=== PATIENT | male | born 1960 | race Caucasian/White ===

== ENCOUNTER → 2016-12-18 | Outpatient (CLI) | payer MEDICARE, BC ==
[~2016-12-18] MED LIST: BACL10TA PO; CLON1TAB36 PO; CLON1TAB69 PO; DCS100C PO; DICL75TA2 PO; GADOBUTROL 10 MMOL/10 ML (GADAVIST) VIAL IV ONE; GBPN600T PO; HYDR-3720 PO; LOVA40TA2 PO; MULT-974 PO; NIAC1CAP PO; OMEG1CAP51 PO; RANI300T4 PO; RNT150T PO; VENL150C PO; [UNRECOGNIZED DRUG - OTHER]
[2016-12-18 17:54] LABS: BLOOD UREA NITROGEN 11 MG/DL (7-18); BUN/CREATININE RATIO 13; CREATININE SERUM 0.85 MG/DL (0.60-1.30); GFR ESTIMATED > 60
--- NOTE | 2016-12-18 19:56 | Diagnostic Imaging Report ---
CLINICAL INDICATION: Patient has chronic low back pain with history of two low back surgeries in 2006 and 2007. EXAM: MRI of the lumbar spine performed without and with 9 cc of Gadavist IV contrast. Sagittal T2, sagittal T1, sagittal T1 fat-sat, sagittal stir, axial T1, axial T2, axial T1 post IV contrast, sagittal T1 post IV contrast, and sagittal T1 fat-sat post IV contrast. COMPARISON: X-ray of the lumbar spine dated 04/07/2013. FINDINGS: There is an incompletely imaged right renal cyst. There is limited visualization of the central canal region on the sagittal sequences due to hardware on the fat-sat sequences. Again seen extensive postop changes to the lumbar spine with L2 through L5 posterior lumbar fusion with bilateral spanning rods and pedicle screws. There are also anterior screws at the L3 and L5 levels. Intervertebral disc spacers are seen at the L3-L4 and L4-L5 levels. There are L3, L4, and L5 laminectomy changes. There is no significant abnormal IV contrast enhancement seen on this exam. There appears to be bony fusion of the L3-L4 and L4-L5 intervertebral levels. There is also fusion of the posterior elements from L2 through L5. There is a fluid collection in the posterior laminectomy bed between the L3 and upper L5 levels. This fluid collection measures roughly 2.0 cm x 3.6 cm x 5.6 cm (AP x Trans x CC). There are Modic type I degenerative signal changes involving the thoracolumbar spine. There are hypertrophic disc spurs involving the thoracolumbar spine region. The distal thoracic spinal cord, conus medullaris, and cauda equina nerve roots are unremarkable. The conus medullaris tip is seen at the upper L2 vertebral body level. Besides postop changes, there is no other significant paraspinal soft tissue abnormality. T10-T11: There is a diffuse disc bulge with bilateral facet arthropathy. There is moderate central canal narrowing and kulhhazj-yf-tsrgga bilateral neuroforamen narrowing. T11-T12: There is diffuse disc bulge, endplate irregularity, and bilateral facet arthropathy. There is moderate central canal narrowing. There is severe bilateral neuroforamen narrowing. T12-L1: There is diffuse disc bulge, mild loss of intervertebral disc height, endplate irregularity, ligamentum flavum buckling, and moderate bilateral facet arthropathy. There is gaiygjjj-fa-bxdnip central canal narrowing and severe bilateral neuroforamen narrowing. L1-L2: There is mild diffuse disc bulge and ynao-pn-xoabnsnr bilateral facet arthropathy. There is mild ligamentum flavum buckling. There is pdpc-lj-zzfulgjq central canal narrowing and severe bilateral neuroforamen narrowing. L2-L3: There is no significant disc bulge. There is moderate bilateral facet arthropathy and ligamentum flavum buckling. There is mild central canal narrowing. There is at least mild bilateral neuroforamen narrowing. L3-L4: There is decompression of the thecal sac posteriorly. There is no significant central spinal canal narrowing. There is bony hypertrophy of the posterior elements with mild narrowing in the transverse dimension due to the hypertrophic posterior elements. The neuroforamen are obscured by susceptibility artifact. L4-L5: There is decompression of the thecal sac posteriorly. There are bony hypertrophic changes of the bony fusion of the posterior elements. There is no significant central canal narrowing. There is suspected jqwrzxxq-cr-tgoixa bilateral neuroforamen narrowing. L5-S1: There is grade 1 retrolisthesis of L5 on S1. There is diffuse disc bulge with hypertrophic disc spurs in the far right lateral region. There is bilateral facet arthropathy/hypertrophy. There is mild central canal narrowing and severe bilateral neuroforamen narrowing. IMPRESSION: 1: There is lumbar spine posterior fusion and anterior fusion hardware, as described above. There is no abnormal IV contrast enhancement. There appears to be intervertebral bony fusion/bridging at the L3-L4 and L4-L5 levels and bony fusion of the posterior elements of L2 through L5. 2: There is a small fluid collection in the posterior lower lumbar laminectomy region. This may represent a seroma versus pseudomeningocele. Infected fluid collection is suspected to be less likely. 3: There is severe multilevel thoracolumbar spine degenerative disc disease, described in detail above. Dictated by: Dictated on workstation # [id number]
== END ==
LOC: RAD 17:19
PROVIDERS: ATTEND Nurse Practitioner Family
DX: M48.06 Spinal stenosis, lumbar region (principal); R15.9 Full incontinence of feces; Z98.1 Arthrodesis status
CPT/HCPCS: 36415; 72158; 82565; 84520

== ENCOUNTER 2020-08-25 05:36 | Outpatient (RCR) | payer BC, MEDICARE ==
[~2020-08-25] VITALS: Ht 185 cm; Wt 104.0 kg
[~2020-08-25 05:36] MED LIST changes: +ALPH600C3 PO; +BETH50TA PO; +BREX0.5T PO; +CHOL10007 PO; +CLON1TAB27 PO; +FAMO20TA3 PO; +FINA5TAB6 PO; -GADOBUTROL 10 MMOL/10 ML (GADAVIST) VIAL IV ONE; +INDO50CA82 PO; +OMG1KC PO; +TMSL.4C PO; +VILA40TA PO
== END 2020-08-25 11:09 | disposition home or self-care (01) ==
LOC: PREOP 05:36
PROVIDERS: ATTEND Surgery
DX: Z01.812 Encounter for preprocedural laboratory examination (principal); K21.9 Gastro-esophageal reflux disease without esophagitis; Z20.828 Contact with and (suspected) exposure to other viral communicable diseases; Z80.0 Family history of malignant neoplasm of digestive organs
CPT/HCPCS: 87635

== ENCOUNTER 2020-08-30 11:43 | Day surgery (SDC) | payer BC, MEDICARE ==
[2020-08-30] VITALS (8 sets, daily range): BP systolic 114–134; BP diastolic 74–89
[~2020-08-30] VITALS: Ht 185 cm; Wt 104.0 kg
[2020-08-30] MEDS ORDERED: LACTATED RINGERS 1,000 ML IV STA (11:49)
[2020-08-30] MEDS ORDERED: LACTATED RINGERS 1,000 ML IV ONE (11:52)
[2020-08-30] MEDS ORDERED: HURRICAINE EXT TUBE (BENZOCAINE) XX PRN (12:00)
[2020-08-30] MEDS ORDERED: PROPOFOL INJECTION 50 ML IV ONE ×2 (12:21→12:55)
[2020-08-30] MEDS ORDERED: MIDAZOLAM 2 MG/2 ML (VERSED) VIAL ONE (12:22)
[2020-08-30] MEDS ORDERED: MULT-1136 PO (12:28)
--- NOTE | 2020-08-30 12:38 | Progress Note-Pre Operative ---
Pre-Operative Progress Note H&P Reviewed The H&P was reviewed, patient examined and no changes noted. Date Seen by Provider: Aug 30, 2020 Time Seen by Provider: 12:37 Date H&P Reviewed: Aug 30, 2020 Time H&P Reviewed: 12:37 Pre-Operative Diagnosis: gerd, incontinence of stool, family hx colon cancer LIZA CARVALHO DO Aug 30, 2020 12:38
--- NOTE | 2020-08-30 13:12 | Progress Note-Post Operative ---
Post-Operative Progess Note Surgeon (s)/Gaming Cashier (s) Surgeon LIZA CARVALHO DO Gaming Cashier: NA Pre-Operative Diagnosis gerd, incontinence of stool, family hx colon cancer Post-Operative Diagnosis Left colon mucosal changes, possible reflux esophagitis Procedure & Operative Findings Date of Procedure 08/30/20 Procedure Performed/Findings EGD c biopsy, colonoscopy c cold random left colon biopsies Anesthesia Type per support services rep Estimated Blood Loss Estimated blood loss (mL): none Specimens/Packing Specimens Removed antrum, ge, left colon LIZA Kaminski DO Aug 30, 2020 13:12
--- NOTE | 2020-08-30 13:16 | Discharge Inst-Simple/Standard ---
Discharge Inst-Standard Patient Instructions/Follow Up Plan of Care/Instructions/FU: 2 weeks Noreen Activity as Tolerated: Yes Discharge Diet: Regular Diet (high fiber) LIZA CARVALHO DO Aug 30, 2020 13:16
--- NOTE | 2020-08-30 13:23 | Anesthesia-General Post-Op ---
MAC Patient Condition Mental Status/LOC: Same as Preop Cardiovascular: Satisfactory Nausea/Vomiting: Absent Respiratory: Satisfactory Pain: Controlled Complications: Absent Post Op Complications Complications None Follow Up Care/Instructions Patient Instructions None needed. Anesthesiology Discharge Order Discharge Order Patient is doing well, no complaints, stable vital signs, no apparent adverse anesthesia problems. No complications reported per nursing. CARMEN MUSTAFA CRNA Aug 30, 2020 13:23
--- NOTE | 2020-08-30 13:43 | OPERATIVE REPORT ---
DATE OF SERVICE: 08/30/2020 PREOPERATIVE DIAGNOSES: Gastroesophageal reflux disease, incontinence of stool, family history of colon cancer. POSTOPERATIVE DIAGNOSIS: Left colon mucosal changes, possible reflux esophagitis. PROCEDURE: EGD with biopsies, colonoscopy with random cold left colon biopsies. SURGEON: Liza Sorto DO ANESTHESIA: Per RECOVERY ROOM NURSE. ESTIMATED BLOOD LOSS: None. COMPLICATIONS: None. SPECIMENS: Antrum, GE junction, left colon, random. INDICATIONS: The patient is a 60-year-old male with GERD symptoms and incontinence of stool and family history of colon cancer. He understands risks and benefits of procedure and wished to proceed with procedure. Consent was signed in the chart. DESCRIPTION OF PROCEDURE: The patient was taken to the endoscopy suite, placed in left lateral recumbent position. Timeout was performed. Scope was inserted in mouth, down the esophagus, stomach and into the duodenum without difficulty. There were no polyps, masses or ulcerations within the duodenum. Scope was slowly retracted back into the stomach where it was further insufflated. No polyps, masses or ulcerations. Scope was retroflexed noting a hiatal hernia. No polyps, masses or ulcerations. Scope was returned to its normal position. Biopsy of the antrum was obtained. Scope was then slowly retracted back. Changes of a possible reflux esophagitis present. Biopsy of GE junction was obtained. Scope was then slowly retracted back noting no other pathology. Digital rectal exam was performed. There were no palpable polyps, masses or ulcerations. Scope was inserted in the rectum and advanced all the way to cecum with minimal difficulty. Prep was adequate. Scope was then slowly retracted back. There were no polyps, masses or ulcerations within the cecum, ascending, transverse colon, the left colon and descending and sigmoid colon. Oral mucosal changes throughout the entire left colon, random colon biopsies were performed. No polyps, masses or ulcerations. Once in the rectum, scope was retroflexed still noting some slight mucosal change. No other pathology noted. Scope was returned to its normal position, slowly withdrawn until completely removed. The patient tolerated procedure well without any complications, taken to recovery room in stable condition. RECOMMENDATIONS: The patient will follow up in the office in about 2 to 3 weeks to review pathology and symptoms. Will need repeat colonoscopy in 5 years due to family history of colon cancer. If any issues before that be seen at that time. We will discuss further recommendations pending biopsy results and symptoms. Job ID: [id number] DocumentID: [id number] Dictated Date: 08/30/2020 13:19:48 Scale Attendant Date: 08/30/2020 13:42:21 Dictated By: LIZA SORTO DO
== END 2020-08-30 13:55 | disposition home or self-care (01) ==
LOC: ENDO 11:43
PROVIDERS: ATTEND Surgery
DX: K21.9 Gastro-esophageal reflux disease without esophagitis (principal); K21.00 Gastro-esophageal reflux disease with esophagitis, without bleeding; R15.9 Full incontinence of feces; K63.89 Other specified diseases of intestine; F41.9 Anxiety disorder, unspecified; F32.9 Major depressive disorder, single episode, unspecified; E11.9 Type 2 diabetes mellitus without complications; M19.90 Unspecified osteoarthritis, unspecified site; Z79.899 Other long term (current) drug therapy; Z80.0 Family history of malignant neoplasm of digestive organs; Z80.3 Family history of malignant neoplasm of breast; Z80.8 Family history of malignant neoplasm of other organs or systems
CPT/HCPCS: 88305

== ENCOUNTER 2021-09-05 16:26 | Observation (INO) | payer MEDICARE ==
[~2021-09-05] VITALS: Ht 187 cm; Wt 101.3 kg
[~2021-09-05 16:26] MED LIST changes: -BETH50TA PO; +BETH50TA2 PO; +MULT-1136 PO
--- NOTE | 2021-09-05 17:56 | ED GI ---
General Chief Complaint: Abdominal/GI Problems Stated Complaint: UTI SYMPTOMS Source of Information: Patient Exam Limitations: No Limitations (MAN ROSS APRN) History of Present Illness Date Seen by Provider: Sep 05, 2021 Time Seen by Provider: 17:54 Initial Comments TBI with feeling poorly. He has urinary frequency and burning, fevers for the past 2 to 3 days to a maximum of 103 degrees at home. Was seen at [facility] today and diagnosed with urinary tract infection and referred to the emergency room. Has not yet been given any antibiotics. August 24 had a lumbar spinal surgery at the [facility] and developed anemia requiring blood transfusion. Reportedly had a hemoglobin of 9 at the time of discharge and was found to be down to 6 again today. Timing/Duration: 1-2 Days Severity/Quality: Moderate Radiation: No Radiation Activities at Onset: None Associated Symptoms: Fever/Chills (MAN ROSS APRN) Allergies and Home Medications Allergies Coded Allergies: No Known Drug Allergies (Verified , 08/30/20) Patient Home Medication List Home Medication List Reviewed: Yes (MAN ROSS APRN) Acetaminophen (Tylenol Extra Strength) 500 Mg Tablet, 1,000 MG PO Q6H PRN for PAIN-MILD (1-4), (Reported) Entered as Reported by: GRACY ARMENTA on 09/06/211114 Last Action: Reviewed Alpha Lipoic Acid (Alpha Lipoic Acid) 600 Mg Capsule, 600 MG PO DAILY, (Reported) Entered as Reported by: GRACY ARMENTA on 09/06/211114 Last Action: Reviewed Baclofen (Baclofen) 10 Mg Tablet, 10 MG PO BID, (Reported) Entered as Reported by: GRACY ARMENTA on 09/06/211114 Last Action: Reviewed Brexpiprazole (Rexulti) 0.5 Mg Tablet, 0.5 MG PO DAILY, (Reported) Entered as Reported by: HUNG WOODS on 08/24/20 1026 Last Action: Converted Cholecalciferol (Vitamin D3) (Vitamin D3) 25 Mcg Capsule, 50 MCG PO DAILY, (Re ported) Entered as Reported by: GRACY ARMENTA on 09/06/211114 Last Action: Reviewed Clonazepam (Clonazepam) 2 Mg Tablet, 2 MG PO HS, (Reported) Entered as Reported by: GRACY ARMENTA on 09/06/211114 Last Action: Converted Docusate Sodium (Docusate Sodium) 100 Mg Capsule, 100 MG PO BID, (Reported) Entered as Reported by: GRACY ARMENTA on 09/06/211114 Last Action: Reviewed Gabapentin (Gabapentin) 600 Mg Tablet, 1,200 MG PO BID, (Reported) Entered as Reported by: HUNG WOODS on 08/24/20 1026 Last Action: Continued Indomethacin (Indomethacin) 50 Mg Capsule, 50 MG PO HS, (Reported) Entered as Reported by: HUNG WOODS on 08/24/20 1026 Last Action: Reviewed Methocarbamol (Methocarbamol) 750 Mg Tablet, 750 MG PO Q8H PRN for SPASMS, (Reported) Entered as Reported by: GRACY ARMENTA on 09/06/211114 Last Action: Reviewed Multivitamin (Multivitamin) 1 Each Tablet, 1 EACH PO DAILY, (Reported) Entered as Reported by: BHAVESH ROWELL on 08/30/20 1228 Last Action: Reviewed [place]-3/Dha/Epa/Fish Oil (Fish Oil 1,000 mg Softgel) 1 Each Capsule, 2 EACH PO HS, (Reported) Entered as Reported by: GRACY ARMENTA on 09/06/21 111 Last Action: Reviewed Omeprazole (Omeprazole) 20 Mg Tab.rap.dr, 20 MG PO HS, (Reported) Entered as Reported by: GRACY ARMENTA on 09/06/211114 Last Action: Reviewed Oxycodone HCl (Roxicodone) 5 Mg Tablet, 5-15 MG PO Q4H PRN for PAIN-SEVERE (8- 10), (Reported) Entered as Reported by: GRACY ARMENTA on 09/06/211114 Last Action: Reviewed Trospium Chloride (Trospium Chloride ER) 60 Mg Cap.er.24h, 60 MG PO HS, (Reported) Entered as Reported by: GRACY ARMENTA on 09/06/211114 Last Action: Reviewed Vilazodone Hydrochloride (Viibryd) 40 Mg Tablet, 40 MG PO HS, (Reported) Entered as Reported by: HUNG WOODS on 08/24/20 102 Last Action: Reviewed Discontinued Medications Alpha Lipoic Acid (Alpha Lipoic Acid) 600 Mg Capsule, 600 MG PO DAILY, (Reported) Discontinued Reason: Duplicate Order Entered as Reported by: HUNG WOODS on 08/24/20 1026 Last Action: Discontinued Baclofen (Baclofen) 10 Mg Tablet, 10 MG PO BID, (Reported) Discontinued Reason: Duplicate Order Entered as Reported by: HUNG WOODS on 08/24/20 1026 Last Action: Discontinued Bethanechol Chloride (Bethanechol Chloride) 50 Mg Tablet, 50 MG PO QID, (Rep orted) Discontinued Reason: No Longer Taking Entered as Reported by: HUNG WOODS on 08/24/20 1026 Last Action: Discontinued Cholecalciferol (Vitamin D3) (Vitamin D3) 25 Mcg Capsule, 25 MCG PO DAILY, (Reported) Discontinued Reason: Duplicate Order Entered as Reported by: HUNG WOODS on 08/24/20 102 Last Action: Discontinued Clonazepam (Clonazepam) 1 Mg Tab.rapdis, 2 MG PO DAILY, (Reported) Discontinued Reason: Duplicate Order Entered as Reported by: HUNG WOODS on 08/24/20 102 Last Action: Discontinued Famotidine (Acid [place] Stitcher (FAMOTIDINE)) 20 Mg Tablet, 20 MG PO DAILY, (Reported) Discontinued Reason: No Longer Taking Entered as Reported by: HUNG WOODS on 08/24/20 102 Last Action: Discontinued Finasteride (Finasteride) 5 Mg Tablet, 5 MG PO DAILY, (Reported) Discontinued Reason: No Longer Taking Entered as Reported by: HUNG WOODS on 08/24/20 1026 Last Action: Discontinued [place] 3 Polyunsat Fatty Acids (Fish Oil 1,000 mg Capsule) 1,000 Mg Cap, 2,000 MG PO BID, (Reported) Discontinued Reason: Prescription changed Entered as Reported by: HUNG WOODS on 08/24/20 1026 Tamsulosin HCl (Flomax) 0.4 Mg Cap, 0.4 MG PO BID, (Reported) Discontinued Reason: No Longer Taking Entered as Reported by: HUNG WOODS on 08/24/20 102 Last Action: Discontinued Review of Systems Review of Systems Constitutional: see HPI, chills, fever, malaise, weakness EENTM: No Symptoms Reported Respiratory: No Symptoms Reported Cardiovascular: No Symptoms Reported Gastrointestinal: See HPI Genitourinary: No Symptoms Reported Musculoskeletal: no symptoms reported Skin: no symptoms reported Psychiatric/Neurological: No Symptoms Reported Endocrine: No Symptoms Reported Hematologic/Lymphatic: No Symptoms Reported (MAN ROSS APRN) Past Xvxzccr-Xnvfbe-Efbppg Hx Immunizations Up To Date Tetanus Booster (TDap): Unknown (MAN ROSS APRN) Seasonal Allergies Seasonal Allergies: Yes (MAN ROSS APRN) Past Medical History Surgeries: Yes (BACK X3, SPINAL STIMULATOR, JAW) Appendectomy Respiratory: No Cardiac: No Neurological: No Sexually Transmitted Disease: No HIV/AIDS: No Genitourinary: No Gastrointestinal: Yes Gastroesophageal Reflux, Chronic Diarrhea Musculoskeletal: Yes Degenerate Disk Disease, Arthritis, Chronic Back Pain Endocrine: Yes (DIET CONTROL) Diabetes, Non-Insulin dep HEENT: Yes (GLASSES) Loss of Vision: Denies Hearing Impairment: Hard of Hearing Cancer: No Psychosocial: No Anxiety, Suicide Attempts, Depression Integumentary: No Blood Disorders: No Adverse Reaction/Blood Tranf: No (N/A) (MAN ROSS APRN) Family Medical History Colon cancer Physical Exam Vital Signs Vital Signs - First Documented 09/05/21 17:18 Temp 36.3 Pulse 109 Resp 18 B/P (MAP) 119/70 (86) Pulse Ox 97 O2 Delivery Room Air (MARIANNA POTTS DO) Vital Signs Capillary Refill : (MAN ROSS APRN) Height/Weight/BMI Height: '" Weight: lbs. oz. kg; 30.38 BMI Method: General Appearance: WD/WN, no apparent distress HEENT: PERRL/EOMI, normal ENT inspection Neck: non-tender, full range of motion Respiratory: no respiratory distress, no accessory muscle use Cardiovascular: regular rate, rhythm, no murmur Gastrointestinal: normal bowel sounds, soft Extremities: normal range of motion, non-tender, normal inspection Neurologic/Psychiatric: alert, normal mood/affect, oriented x 3 Skin: warm/dry, pallor (MAN ROSS APRN) Focused Exam Lactate Level 09/05/21 17:45: Lactic Acid Level 1.28 (MARIANNA POTTS DO) Lactic Acid Level Laboratory Tests Test 09/05/21 17:45 Lactic Acid Level 1.28 MMOL/L (0.50-2.00) (MARIANNA POTTS DO) Progress/Results/Core Measures Results/Orders Lab Results Laboratory Tests Test 09/05/21 17:45 09/05/21 19:17 Range/Units White Blood Count 19.7 H 4.3-11.0 10^3/uL Red Blood Count 2.92 L 4.30-5.52 10^6/uL Hemoglobin 8.7 L 13.3-17.7 g/dL Hematocrit 27 L 40-54 % Mean Corpuscular Volume 91 80-99 fL Mean Corpuscular Hemoglobin 30 25-34 pg Mean Corpuscular Hemoglobin Concent 33 32-36 g/dL Red Cell Distribution Width 13.6 10.0-14.5 % Platelet Count 635 H 130-400 10^3/uL Mean Platelet Volume 9.0 9.0-12.2 fL Immature Granulocyte % (Auto) 2 % Neutrophils (%) (Auto) 85 H 42-75 % Lymphocytes (%) (Auto) 6 L 12-44 % Monocytes (%) (Auto) 5 0-12 % Eosinophils (%) (Auto) 1 0-10 % Basophils (%) (Auto) 0 0-10 % Neutrophils # (Auto) 16.9 H 1.8-7.8 10^3/uL Lymphocytes # (Auto) 1.2 1.0-4.0 10^3/uL Monocytes # (Auto) 0.9 0.0-1.0 10^3/uL Eosinophils # (Auto) 0.3 0.0-0.3 10^3/uL Basophils # (Auto) 0.1 0.0-0.1 10^3/uL Immature Granulocyte # (Auto) 0.4 H 0.0-0.1 10^3/uL Neutrophils % (Manual) 79 % Lymphocytes % (Manual) 10 % Monocytes % (Manual) 9 % Eosinophils % (Manual) 2 % Blood Morphology Comment NORMAL Prothrombin Time 12.5 12.2-14.7 SEC INR Comment 0.9 0.8-1.4 Activated Partial Thromboplast Time 28 24-35 SEC Sodium Level 133 L 135-145 MMOL/L Potassium Level 3.9 3.6-5.0 MMOL/L Chloride Level 96 L 98-107 MMOL/L Carbon Dioxide Level 23 21-32 MMOL/L Anion Gap 14 5-14 MMOL/L Blood Urea Nitrogen 17 7-18 MG/DL Creatinine 1.47 H 0.60-1.30 MG/DL Estimat Glomerular Filtration Rate 49 BUN/Creatinine Ratio 12 Glucose Level 97 70-105 MG/DL Lactic Acid Level 1.28 0.50-2.00 MMOL/L Calcium Level 9.2 8.5-10.1 MG/DL Corrected Calcium 9.4 8.5-10.1 MG/DL Total Bilirubin 0.7 0.1-1.0 MG/DL Aspartate Amino Transf (AST/SGOT) 19 5-34 U/L Alanine Aminotransferase (ALT/SGPT) 16 0-55 U/L Alkaline Phosphatase 146 H 40-136 U/L Total Protein 7.2 6.4-8.2 GM/DL Albumin 3.7 3.2-4.5 GM/DL Urine Color YELLOW Urine Clarity CLOUDY Urine pH 6.0 5-9 Urine Specific Brooks 1.010 L 1.016-1.022 Urine Protein 1+ H NEGATIVE Urine Glucose (UA) NEGATIVE NEGATIVE Urine Ketones NEGATIVE NEGATIVE Urine Nitrite POSITIVE H NEGATIVE Urine Bilirubin NEGATIVE NEGATIVE Urine Urobilinogen 1.0 < = 1.0 MG/DL Urine Leukocyte Esterase 3+ H NEGATIVE Urine RBC (Auto) 1+ H NEGATIVE Urine RBC 0-2 /HPF Urine WBC >100 H /HPF Urine Crystals NONE /LPF Urine Bacteria MODERATE H /HPF Urine Casts NONE /LPF Urine Mucus NEGATIVE /LPF Urine Culture Indicated CULTURE PENDING (MARIANNA POTTS DO) Micro Results Microbiology 09/05/21 Urine Culture - Preliminary, Resulted Escherichia coli 09/05/21 Blood Culture - Preliminary, Resulted No growth 09/05/21 Blood Culture - Preliminary, Resulted No growth (MARIANNA POTTS DO) Vital Signs/I&O 09/05/21 17:18 Temp 36.3 Pulse 109 Resp 18 B/P (MAP) 119/70 (86) Pulse Ox 97 O2 Delivery Room Air (MARIANNA POTTS DO) Departure Communication (Admissions) Spoke with Dr. Isabel, will admit NAME: DANNY ALEGRIA [facility] REC#: [id number] PT STATUS: REG ER : 1960 PHYSICIAN: MAN ROSS APRN ADMIT DATE: 09/05/21/ER Signed Date of Exam:09/05/21 CHEST 1 VIEW, AP/PA ONLY INDICATION: Cardiac enlargement, sepsis. COMPARISON: 03/24/2013 FINDINGS: Single view of the chest demonstrates cardiac enlargement with slight central vascular congestion. There is no focal infiltrate. There is no pneumothorax or effusion. Osseous structures are normal. IMPRESSION: Cardiac enlargement with slight central vascular congestion. Dictated by: Dictated on workstation # [id number] Dict: 09/05/21 1845 Trans: 09/05/21 1850 [facility] [id number] Interpreted by: DANNY DIOR Electronically signed by: DANNY DIOR 09/05/21 185 (MAN ROSS APRN) Impression Primary Impression: UTI (urinary tract infection) Additional Impression: Sepsis Disposition: 09 ADMITTED INPATIENT Condition: Stable Admissions Decision to Admit Reason: Admit from ER (General) Decision to Admit/Date: Sep 05, 2021 Time/Decision to Admit Time: 20:25 (MAN ROSS APRN) Departure-Patient Inst. Referrals: [facility] (PCP) Primary Care Physician KETTY HILL (Family) Primary Care Physician ATTENDING PHYSICIAN NOTE: I WAS PHYSICALLY PRESENT ER PHYSICIAN WHEN THIS PATIENT WAS IN ER, BUT I WAS NOT INVOLVED IN ANY DECISION MAKING OR ANY CARE OF THIS PATIENT. (MARIANNA POTTS DO) MAN ROSS APRN Sep 05, 2021 17:56 MARIANNA POTTS DO Sep 07, 2021 03:27
[2021-09-05] MEDS ORDERED: cefTRIAXone 2,000 MG in NS (IVPB) 50 ML IV ONE (18:00)
[2021-09-05 18:02] LABS: BASOPHILS # (AUTO) 0.1 10^3/uL (0.0-0.1); BASOPHILS % (AUTO) 0 % (0-10); EOSINOPHILS # (AUTO) 0.3 10^3/uL (0.0-0.3); EOSINOPHILS % (AUTO) 1 % (0-10); HEMATOCRIT 27 % (40-54); HEMOGLOBIN 8.7 g/dL (13.3-17.7); LYMPHOCYTES # (AUTO) 1.2 10^3/uL (1.0-4.0); LYMPHOCYTES % (AUTO) 6 % (12-44); MEAN CORPUSCULAR HEMOGLOBIN 30 pg (25-34); MEAN CORPUSCULAR HGB CONC 33 g/dL (32-36); MEAN CORPUSCULAR VOLUME 91 fL (80-99); MONOCYTES # (AUTO) 0.9 10^3/uL (0.0-1.0); MONOCYTES % (AUTO) 5 % (0-12); NEUTROPHILS # (AUTO) 16.9 10^3/uL (1.8-7.8); NEUTROPHILS % (AUTO) 85 % (42-75); PLATELET COUNT 635 10^3/uL (130-400); WHITE BLOOD COUNT 19.7 10^3/uL (4.3-11.0)
[2021-09-05 18:12] LABS: ALBUMIN 3.7 GM/DL (3.2-4.5); POTASSIUM 3.9 MMOL/L (3.6-5.0)
[2021-09-05 18:13] LABS: CALCIUM 9.2 MG/DL (8.5-10.1)
[2021-09-05 18:15] LABS: TOTAL PROTEIN 7.2 GM/DL (6.4-8.2)
[2021-09-05 18:17] LABS: BILIRUBIN,TOTAL 0.7 MG/DL (0.1-1.0)
[2021-09-05 18:18] LABS: CREATININE SERUM 1.47 MG/DL (0.60-1.30)
[2021-09-05 18:20] LABS: EOSINOPHILS % (MANUAL) 2 %; LYMPHOCYTES % (MANUAL) 10 %; MONOCYTES % (MANUAL) 9 %; NEUTROPHILS % (MANUAL) 79 %; RBC MORPH NORMAL
[2021-09-05 18:23] LABS: INR 0.9 (0.8-1.4); PROTHROMBIN TIME PATIENT 12.5 SEC (12.2-14.7)
--- NOTE | 2021-09-05 18:50 | Diagnostic Imaging Report ---
INDICATION: Cardiac enlargement, sepsis. COMPARISON: 03/24/2013 FINDINGS: Single view of the chest demonstrates cardiac enlargement with slight central vascular congestion. There is no focal infiltrate. There is no pneumothorax or effusion. Osseous structures are normal. IMPRESSION: Cardiac enlargement with slight central vascular congestion. Dictated by: Dictated on workstation # [id number]
[2021-09-05 19:24] LABS: BILIRUBIN,URINE NEGATIVE (NEGATIVE); CLARITY,URINE CLOUDY; COLOR,URINE YELLOW; GLUCOSE, URINE (UA) NEGATIVE (NEGATIVE); KETONES,URINE NEGATIVE (NEGATIVE); LEUKOCYTE ESTERASE ,URINE 3+ (NEGATIVE); NITRITE,URINE POSITIVE (NEGATIVE); PROTEIN,URINE 1+ (NEGATIVE)
[2021-09-05 19:41] LABS: BACTERIA,URINE MODERATE /HPF; RBC,URINE 0-2 /HPF; WBC,URINE >100 /HPF
[2021-09-05] MEDS ORDERED: IBUPROFEN 800 MG (MOTRIN) TAB PO ONE (20:00)
[2021-09-05] MEDS ORDERED: ACETAMINOPHEN 500 MG TAB (TYLENOL) PO ONE (20:00)
[2021-09-05 21:00] VITALS: BP 97/61
[2021-09-05] MEDS ORDERED: LACTATED RINGERS 1,000 ML IV ONE (21:38)
[2021-09-05] MEDS ORDERED: ONDANSETRON 4 MG/2 ML (SDV) Z0FRAN IVP PRN (22:15)
[2021-09-05] MEDS: LACTATED RINGERS 1,000 ML IV SCH (22:47)
[2021-09-06] VITALS: BP 93/54
[2021-09-06 04:02] VITALS: BP 103/65
[2021-09-06] MEDS: LACTATED RINGERS 1,000 ML IV SCH ×3 (06:22→21:37)
[2021-09-06 06:28] LABS: BASOPHILS % (AUTO) 0 % (0-10); EOSINOPHILS # (AUTO) 0.2 10^3/uL (0.0-0.3); EOSINOPHILS % (AUTO) 1 % (0-10); HEMATOCRIT 26 % (40-54); HEMOGLOBIN 8.6 g/dL (13.3-17.7); LYMPHOCYTES # (AUTO) 1.5 10^3/uL (1.0-4.0); LYMPHOCYTES % (AUTO) 9 % (12-44); MEAN CORPUSCULAR HEMOGLOBIN 30 pg (25-34); MEAN CORPUSCULAR HGB CONC 33 g/dL (32-36); MEAN CORPUSCULAR VOLUME 90 fL (80-99); MEAN PLATELET VOLUME 9.3 fL (9.0-12.2); MONOCYTES # (AUTO) 0.8 10^3/uL (0.0-1.0); MONOCYTES % (AUTO) 5 % (0-12); NEUTROPHILS # (AUTO) 13.2 10^3/uL (1.8-7.8); NEUTROPHILS % (AUTO) 83 % (42-75); PLATELET COUNT 731 10^3/uL (130-400)
[2021-09-06 06:38] LABS: POTASSIUM 4.1 MMOL/L (3.6-5.0)
[2021-09-06 06:39] LABS: CALCIUM 9.5 MG/DL (8.5-10.1)
[2021-09-06 06:43] LABS: CREATININE SERUM 1.23 MG/DL (0.60-1.30)
[2021-09-06 07:30] VITALS: BP 95/52
[2021-09-06] MEDS: ACETAMINOPHEN 500 MG TAB (TYLENOL) PO PRN (09:21)
[2021-09-06] MEDS ORDERED: OMEG-160 PO (11:14)
[2021-09-06] MEDS ORDERED: METH-732 PO (11:15)
[2021-09-06] MEDS ORDERED: ACET-2267 PO (11:15)
[2021-09-06] MEDS ORDERED: DOCU100C37 PO (11:15)
[2021-09-06] MEDS ORDERED: CHOL100048 PO (11:15)
[2021-09-06] MEDS ORDERED: CLON2TAB12 PO (11:15)
[2021-09-06] MEDS ORDERED: TROS60CA PO (11:15)
[2021-09-06] MEDS ORDERED: OXYC-473 PO (11:15)
[2021-09-06] MEDS ORDERED: OMEP-401 PO (11:15)
[2021-09-06] MEDS ORDERED: BACL10TA PO (11:15)
[2021-09-06] MEDS ORDERED: ALPH600C3 PO (11:15)
[2021-09-06 12:00] VITALS: BP 106/64
[2021-09-06] MEDS: METHOCARBAMOL 750 MG (ROBAXIN) TAB PO PRN ×2 (15:19→21:30)
[2021-09-06 16:00] VITALS: BP 97/54
[2021-09-06] MEDS: cefTRIAXone 1 GM PRE-MIX 50 ML IV SCH (18:08)
--- NOTE | 2021-09-06 18:12 | History & Physical ---
HPI History of Present Illness: 61 yo M that had recent spinal surgery that presented with fever and found to have UTI. Patient follows with urology and frequently self caths at home. He has not been treated for UTI for years. Patient just had spinal surgery with hardware placed in his back. Source: patient, spouse Exam Limitations: no limitations Date seen by provider: Sep 06, 2021 Time Seen by Provider: 11:45 Attending Physician Maria Isabel Isabel MD [facility] Consult Date of Admission Sep 05, 2021 at 19:50 Home Medications Home Medications Reviewed patient Home Medication Reconciliation performed by pharmacy medication reconciliations on site wastewater systems technician and/or nursing. Patients Allergies have been reviewed. Allergies Coded Allergies: No Known Drug Allergies (Verified , 08/30/20) PFM-[id number] Hx Patient Social History Living Status: Lives at home with , independent with ADLs Smoking Status: Never a Smoker 2nd Hand Smoke Exposure: No Recent Hopitalizations: No Alcohol Use?: No Have you traveled recently?: No Immunizations Up To Date Tetanus Booster (TDap): Unknown Influenza Vaccine Up-to-Date: Yes; Up-to-Date First/Initial COVID19 Vaccinat: 2020 Second COVID19 Vaccination Jarad: july 2021 Past Medical History Chronic Back pain BPH Family Medical History Significant Family History: No Pertinent Family Hx Family History: Colon cancer Review of Systems (CHC) Constitutional: fever, malaise EENTM: no symptoms reported; No mouth pain, No nose congestion, No throat s welling Respiratory: no symptoms reported; No cough, No dyspnea on exertion, No short of breath Cardiovascular: no symptoms reported; No chest pain, No edema, No palpitations Gastrointestinal: no symptoms reported; No abdominal pain, No constipation, No diarrhea, No nausea, No vomiting Genitourinary: frequency Musculoskeletal: back pain Skin: no symptoms reported; No lesions, No rash Psychiatric/Neurological: No Symptoms Reported Reviewed Test Results Reviewed Test Results Lab Laboratory Tests Test 09/05/21 19:17 09/06/21 05:45 Range/Units Urine Color YELLOW Urine Clarity CLOUDY Urine pH 6.0 5-9 Urine Specific [place] 1.010 L 1.016-1.022 Urine Protein 1+ H NEGATIVE Urine Glucose (UA) NEGATIVE NEGATIVE Urine Ketones NEGATIVE NEGATIVE Urine Nitrite POSITIVE H NEGATIVE Urine Bilirubin NEGATIVE NEGATIVE Urine Urobilinogen 1.0 < = 1.0 MG/DL Urine Leukocyte Esterase 3+ H NEGATIVE Urine RBC (Auto) 1+ H NEGATIVE Urine RBC 0-2 /HPF Urine WBC >100 H /HPF Urine Crystals NONE /LPF Urine Bacteria MODERATE H /HPF Urine Casts NONE /LPF Urine Mucus NEGATIVE /LPF Urine Culture Indicated CULTURE PENDING White Blood Count 16.0 H 4.3-11.0 10^3/uL Red Blood Count 2.91 L 4.30-5.52 10^6/uL Hemoglobin 8.6 L 13.3-17.7 g/dL Hematocrit 26 L 40-54 % Mean Corpuscular Volume 90 80-99 fL Mean Corpuscular Hemoglobin 30 25-34 pg Mean Corpuscular Hemoglobin Concent 33 32-36 g/dL Red Cell Distribution Width 14.0 10.0-14.5 % Platelet Count 731 H 130-400 10^3/uL Mean Platelet Volume 9.3 9.0-12.2 fL Immature Granulocyte % (Auto) 2 % Neutrophils (%) (Auto) 83 H 42-75 % Lymphocytes (%) (Auto) 9 L 12-44 % Monocytes (%) (Auto) 5 0-12 % Eosinophils (%) (Auto) 1 0-10 % Basophils (%) (Auto) 0 0-10 % Neutrophils # (Auto) 13.2 H 1.8-7.8 10^3/uL Lymphocytes # (Auto) 1.5 1.0-4.0 10^3/uL Monocytes # (Auto) 0.8 0.0-1.0 10^3/uL Eosinophils # (Auto) 0.2 0.0-0.3 10^3/uL Basophils # (Auto) 0.0 0.0-0.1 10^3/uL Immature Granulocyte # (Auto) 0.3 H 0.0-0.1 10^3/uL Sodium Level 137 135-145 MMOL/L Potassium Level 4.1 3.6-5.0 MMOL/L Chloride Level 100 98-107 MMOL/L Carbon Dioxide Level 23 21-32 MMOL/L Anion Gap 14 5-14 MMOL/L Blood Urea Nitrogen 15 7-18 MG/DL Creatinine 1.23 0.60-1.30 MG/DL Estimat Glomerular Filtration Rate 60 BUN/Creatinine Ratio 12 Glucose Level 110 H 70-105 MG/DL Calcium Level 9.5 8.5-10.1 MG/DL Physical Exam-([facility]) Physical Exam Vital Signs VS - Last 72 Hours, by Label 09/05/21 09/05/21 09/05/21 09/05/21 17:18 19:56 20:33 20:33 Temp 36.3 39.2 39.2 39.2 Pulse 109 Resp 18 B/P (MAP) 119/70 (86) Pulse Ox 97 O2 Delivery Room Air 09/05/21 09/05/21 09/05/21 09/05/21 21:00 21:02 22:39 23:02 Temp 38.6 38.6 37.3 Pulse 120 109 Resp 15 14 B/P (MAP) 97/61 (73) 115/78 Pulse Ox 95 96 95 O2 Delivery Room Air Room Air Room Air 09/06/21 09/06/21 09/06/21 09/06/21 00:00 04:02 07:30 08:00 Temp 36.6 37.3 38.0 Pulse 92 91 111 Resp 17 17 20 B/P (MAP) 93/54 (67) 103/65 (78) 95/52 (66) Pulse Ox 96 96 94 95 O2 Delivery Room Air Room Air Room Air Room Air 09/06/21 09/06/21 09/06/21 09/06/21 09:21 09:51 12:00 16:00 Temp 37.3 36.8 37.2 38.3 Pulse 96 103 Resp 18 20 B/P (MAP) 106/64 (78) 97/54 (68) Pulse Ox 95 94 O2 Delivery Room Air Room Air Capillary Refill : General Appearance: WD/WN, no apparent distress, other (Laying on right side due to recent back surgery) Neck: non-tender, full range of motion Respiratory: chest non-tender, lungs clear, normal breath sounds, no respiratory distress, no accessory muscle use Cardiovascular: normal peripheral pulses, regular rate, rhythm, no murmur Gastrointestinal: normal bowel sounds, non tender, soft Extremities: normal range of motion, no pedal edema, no calf tenderness, normal capillary refill Neurologic/Psychiatric: vessel engineer II-XII nml as tested, alert, oriented x 3 Skin: other (back incision: az present from thoracic to lumbar, no erythema or signs of secondary infection, non tender to palpation) Assessment/Plan Assessment/Plan Admission Status: Observation (1) UTI (urinary tract infection) Status: Acute Assessment & Plan: - Continue IV antibiotics, will wait for C/s 2/2 to recent spinal surgery, Continue IVFs Qualifiers: Qualified Codes: N30.01 - Acute cystitis with hematuria (2) H/O Spinal surgery Status: Acute (3) BPH (benign prostatic hyperplasia) Status: Chronic Assessment & Plan: - intermittent self cath Qualifiers: Qualified Codes: N40.1 - Benign prostatic hyperplasia with lower urinary tract symptoms; R35.0 - Frequency of micturition MARIA ISABEL ISABEL MD Sep 06, 2021 18:11
[2021-09-06 19:07] VITALS: BP 95/52
[2021-09-06] MEDS: GABAPENTIN 600 MG (NEURONTIN) TAB PO SCH (21:30)
[2021-09-06] MEDS: clonazePAM 1 MG (KlonoPIN) TAB PO SCH (21:36)
[2021-09-07 00:30] VITALS: BP 120/50
[2021-09-07 04:30] VITALS: BP 118/68
[2021-09-07 06:22] LABS: BASOPHILS % (AUTO) 0 % (0-10); EOSINOPHILS # (AUTO) 0.1 10^3/uL (0.0-0.3); EOSINOPHILS % (AUTO) 1 % (0-10); HEMATOCRIT 23 % (40-54); HEMOGLOBIN 7.6 g/dL (13.3-17.7); LYMPHOCYTES # (AUTO) 1.7 10^3/uL (1.0-4.0); LYMPHOCYTES % (AUTO) 16 % (12-44); MEAN CORPUSCULAR HEMOGLOBIN 30 pg (25-34); MEAN CORPUSCULAR HGB CONC 33 g/dL (32-36); MEAN CORPUSCULAR VOLUME 90 fL (80-99); MEAN PLATELET VOLUME 8.9 fL (9.0-12.2); MONOCYTES # (AUTO) 0.9 10^3/uL (0.0-1.0); MONOCYTES % (AUTO) 9 % (0-12); NEUTROPHILS # (AUTO) 7.7 10^3/uL (1.8-7.8); NEUTROPHILS % (AUTO) 73 % (42-75); PLATELET COUNT 683 10^3/uL (130-400); WHITE BLOOD COUNT 10.6 10^3/uL (4.3-11.0)
[2021-09-07] MEDS: LACTATED RINGERS 1,000 ML IV SCH ×2 (06:31→13:55)
[2021-09-07 06:36] LABS: CALCIUM 8.8 MG/DL (8.5-10.1); CREATININE SERUM 1.04 MG/DL (0.60-1.30); POTASSIUM 3.5 MMOL/L (3.6-5.0)
[2021-09-07 07:48] VITALS: BP 120/62
[2021-09-07] MEDS ORDERED: NON-FORMULARY MEDICATION 1 EA EA (Brexpiprazole (Rexulti) 0.5 MG) PO SCH (09:00)
[2021-09-07] MEDS: GABAPENTIN 600 MG (NEURONTIN) TAB PO SCH ×2 (09:10→21:30)
[2021-09-07 11:24] VITALS: BP 115/76
[2021-09-07] MEDS: LOPERAMIDE 2 MG (IMODIUM) TABLET PO PRN (13:54)
[2021-09-07] MEDS: LACTOBACILLUS ACIDOPHILUS (PROBIOTIC) CAPSULE PO SCH ×2 (13:54→18:55)
[2021-09-07 16:00] VITALS: BP 117/75
[2021-09-07] MEDS ORDERED: CALCIUM CARBONATE 500 MG (TUMS) TAB.CHEW PO PRN (18:00)
[2021-09-07] MEDS: cefTRIAXone 1 GM PRE-MIX 50 ML IV SCH (18:55)
[2021-09-07 19:24] VITALS: BP 103/56
[2021-09-07] MEDS: clonazePAM 1 MG (KlonoPIN) TAB PO SCH (21:30)
--- NOTE | 2021-09-07 21:31 | Progress Note ---
Subjective Subjective/Events-last exam Patient states that he is feel alittle better. Had a few bouts of diarrhea last night. Last fever yesterday evening Review of Systems Pulmonary: No Dyspnea, No Cough Cardiovascular: No: Chest Pain, Palpitations, Edema Gastrointestinal: Abdominal Pain, Diarrhea; No: Nausea, Vomiting Neurological: Weakness, Incoordination Focused Exam Lactate Level 09/05/21 17:45: Lactic Acid Level 1.28 Objective Exam Last Set of Vital Signs Vital Signs Date Time Temp Pulse Resp B/P (MAP) Pulse Ox O2 Delivery O2 Flow Rate FiO2 09/07/21 19:24 36.2 99 20 103/56 (72) 94 Room Air Capillary Refill : I&O Intake and Output 09/07/21 00:00 Intake Total 2410 ml Output Total 2550 ml Balance -140 ml Intake Oral 2410 ml Output Urine Total 2550 ml # Urine Diapers 1 # Bowel Movements 4 General: Alert, Oriented X3, Cooperative, No Acute Distress HEENT: Mucous Memb Moist/[place] Lungs: Clear to Auscultation, Normal Air Movement Heart: Regular Rate, No Murmurs Abdomen: Normal Bowel Sounds, Soft, No Tenderness, No Masses Extremities: No Edema, No Tenderness/Swelling Skin: Other (incision: CDI) Neuro: Normal Speech Results/Procedures Lab Laboratory Tests 09/07/21 06:00: Sodium Level 136, Potassium Level 3.5L, Chloride Level 101, Carbon Dioxide Level 22, Anion Gap 13, Blood Urea Nitrogen 12, Creatinine 1.04, Estimat Glomerular Filtration Rate 72, BUN/Creatinine Ratio 12, Glucose Level 108H, Calcium Level 8.8 09/07/21 06:12: White Blood Count 10.6, Red Blood Count 2.57L, Hemoglobin 7.6L, Hematocrit 23L, Mean Corpuscular Volume 90, Mean Corpuscular Hemoglobin 30, Mean Corpuscular Hemoglobin Concent 33, Red Cell Distribution Width 14.6H, Platelet Count 683H, Mean Platelet Volume 8.9L, Immature Granulocyte % (Auto) 1, Neutrophils (%) (Auto) 73, Lymphocytes (%) (Auto) 16, Monocytes (%) (Auto) 9, Eosinophils (%) (Auto) 1, Basophils (%) (Auto) 0, Neutrophils # (Auto) 7.7, Lymphocytes # (Auto) 1.7, Monocytes # (Auto) 0.9, Eosinophils # (Auto) 0.1, Basophils # (Auto) 0.0, Immature Granulocyte # (Auto) 0.1 Microbiology 09/05/21 Urine Culture - Preliminary, Resulted Escherichia coli 09/05/21 Blood Culture - Preliminary, Resulted No growth Assessment/Plan Assessment/Plan (1) UTI (urinary tract infection) Status: Acute Assessment & Plan: - Continue IV antibiotics, will wait for C/s 2/2 to recent spinal surgery, Continue IVFs 09/07: Fever curve coming down last fever yesterday evening, Ecoli, waiting on sensitivities Qualifiers: Qualified Codes: N30.01 - Acute cystitis with hematuria (2) H/O Spinal surgery Status: Acute (3) BPH (benign prostatic hyperplasia) Status: Chronic Assessment & Plan: - intermittent self cath Qualifiers: Qualified Codes: N40.1 - Benign prostatic hyperplasia with lower urinary tract symptoms; R35.0 - Frequency of micturition (4) Diarrhea Status: Acute Assessment & Plan: 09/07: Likely 2/2 antibiotics, started on probiotic and given immodium PRN Qualifiers: Qualified Codes: R19.7 - Diarrhea, unspecified SILVER CORTES MD Sep 07, 2021 21:31
[2021-09-08 00:01] VITALS: BP 103/60
[2021-09-08] MEDS: ACETAMINOPHEN 500 MG TAB (TYLENOL) PO PRN (03:29)
[2021-09-08 03:59] VITALS: BP 107/66
[2021-09-08 06:44] LABS: CALCIUM 8.5 MG/DL (8.5-10.1); CREATININE SERUM 0.87 MG/DL (0.60-1.30); POTASSIUM 3.7 MMOL/L (3.6-5.0)
[2021-09-08 06:57] LABS: BASOPHILS % (AUTO) 0 % (0-10); EOSINOPHILS # (AUTO) 0.1 10^3/uL (0.0-0.3); EOSINOPHILS % (AUTO) 2 % (0-10); HEMATOCRIT 34 % (40-54); HEMOGLOBIN 11.5 g/dL (13.3-17.7); LYMPHOCYTES % (AUTO) 29 % (12-44); MEAN CORPUSCULAR HGB CONC 33 g/dL (32-36); MEAN CORPUSCULAR VOLUME 88 fL (80-99); MEAN PLATELET VOLUME 8.7 fL (9.0-12.2); MONOCYTES # (AUTO) 0.7 10^3/uL (0.0-1.0); MONOCYTES % (AUTO) 11 % (0-12); NEUTROPHILS % (AUTO) 58 % (42-75); PLATELET COUNT 515 10^3/uL (130-400); WHITE BLOOD COUNT 6.9 10^3/uL (4.3-11.0)
[2021-09-08 06:58] LABS: MEAN CORPUSCULAR HEMOGLOBIN 29 pg (25-34)
[2021-09-08 08:00] VITALS: BP 99/60
[2021-09-08] MEDS: LACTOBACILLUS ACIDOPHILUS (PROBIOTIC) CAPSULE PO SCH ×2 (08:20→12:26)
[2021-09-08] MEDS: GABAPENTIN 600 MG (NEURONTIN) TAB PO SCH (08:20)
[2021-09-08] MEDS: LOPERAMIDE 2 MG (IMODIUM) TABLET PO PRN (11:58)
[2021-09-08 12:00] VITALS: BP 102/57
[2021-09-08] MEDS: cefTRIAXone 1 GM PRE-MIX 50 ML IV SCH (12:26)
[2021-09-08] MEDS ORDERED: CEPH500T PO (13:09)
--- NOTE | 2021-09-08 13:10 | Discharge Summary ---
Discharge Summary Reconcile Patient Problems Problems Reviewed?: Yes Instructions for Patient Via [facility], Assessment/Instructions UTI Recent back surgery Debility Physician to follow Patient: PCP @ [facility] Discharge Diet for Home: Cardiac Diet Hospital Course Date of Admission: Sep 05, 2021 at 19:50 Admission Diagnosis : Family Physician/Provider: Azra Myers Date of Discharge: 09/08/21 Discharge Diagnosis: UTI Ecoli Recent back surgery Debility Diarrhea Hospital Course: 61 yo M with recent back surgery last week that presented with fevers and found to have UTI. Patient continued to have some fevers in the first 24 hrs but then they resolved. Culture grew out peter sensitive Ecoli. [place] were removed today prior to d/c. Will reschedule f.u with neurosurgeon. Labs and Pending Lab Test: Laboratory Tests 09/08/21 06:20: White Blood Count 6.9, Red Blood Count 3.90L, Hemoglobin 11.5#L, Hematocrit 34L, Mean Corpuscular Volume 88, Mean Corpuscular Hemoglobin 29, Mean Corpuscular Hemoglobin Concent 33, Red Cell Distribution Width 14.6H, Platelet Count 515H, Mean Platelet Volume 8.7L, Immature Granulocyte % (Auto) 1, Neutrophils (%) (Auto) 58, Lymphocytes (%) (Auto) 29, Monocytes (%) (Auto) 11, Eosinophils (%) (Auto) 2, Basophils (%) (Auto) 0, Neutrophils # (Auto) 4.0, Lymphocytes # (Auto) 2.0, Monocytes # (Auto) 0.7, Eosinophils # (Auto) 0.1, Basophils # (Auto) 0.0, Immature Granulocyte # (Auto) 0.1, Sodium Level 139, Potassium Level 3.7, Chloride Level 105, Carbon Dioxide Level 23, Anion Gap 11, Blood Urea Nitrogen 7, Creatinine 0.87, Estimat Glomerular Filtration Rate 98, BUN/Creatinine Ratio 8, Glucose Level 116H, Calcium Level 8.5 Microbiology 09/05/21 Urine Culture - Final, Complete Escherichia coli 09/05/21 Blood Culture - Preliminary, Resulted No growth Home Meds Active Reported Roxicodone (Oxycodone HCl) 5 Mg Tablet 5-15 Mg PO Q4H PRN TAKES 1 TO 3 (5MG) TABS Methocarbamol 750 Mg Tablet 750 Mg PO Q8H PRN Trospium Chloride ER (Trospium Chloride) 60 Mg Cap.er.24h 60 Mg PO HS Docusate Sodium 100 Mg Capsule 100 Mg PO BID Omeprazole 20 Mg Tab.rap.dr 20 Mg PO HS Clonazepam 2 Mg Tablet 2 Mg PO HS Vitamin D3 (Cholecalciferol (Vitamin D3)) 25 Mcg Capsule 50 Mcg PO DAILY Baclofen 10 Mg Tablet 10 Mg PO BID Tylenol Extra Strength (Acetaminophen) 500 Mg Tablet 1,000 Mg PO Q6H PRN Alpha Lipoic Acid 600 Mg Capsule 600 Mg PO DAILY Fish Oil 1,000 mg Softgel ([place]-3/Dha/Epa/Fish Oil) 1 Each Capsule 2 Each PO HS Multivitamin 1 Each Tablet 1 Each PO DAILY Viibryd (Vilazodone Hydrochloride) 40 Mg Tablet 40 Mg PO HS Rexulti (Brexpiprazole) 0.5 Mg Tablet 0.5 Mg PO DAILY Indomethacin 50 Mg Capsule 50 Mg PO HS Gabapentin 600 Mg Tablet 1,200 Mg PO BID TAKES 2 (600MG) TABS Patient Allergies: Coded Allergies: No Known Drug Allergies (Verified , 08/30/20) New Medications: Cephalexin (Cephalexin) 500 Mg Tablet 500 MG PO BID for 3 Days, #6 TAB Continued Medications: Acetaminophen (Tylenol Extra Strength) 500 Mg Tablet 1000 MG PO Q6H PRN for PAIN-MILD (1-4), TAB Alpha Lipoic Acid (Alpha Lipoic Acid) 600 Mg Capsule 600 MG PO DAILY, CAP Baclofen (Baclofen) 10 Mg Tablet 10 MG PO BID, TAB Brexpiprazole (Rexulti) 0.5 Mg Tablet 0.5 MG PO DAILY, TAB Cholecalciferol (Vitamin D3) (Vitamin D3) 25 Mcg Capsule 50 MCG PO DAILY, CAP Clonazepam (Clonazepam) 2 Mg Tablet 2 MG PO HS, TAB Docusate Sodium (Docusate Sodium) 100 Mg Capsule 100 MG PO BID, CAP Gabapentin (Gabapentin) 600 Mg Tablet 1200 MG PO BID, TAB TAKES 2 (600MG) TABS Methocarbamol (Methocarbamol) 750 Mg Tablet 750 MG PO Q8H PRN for SPASMS, TAB Multivitamin (Multivitamin) 1 Each Tablet 1 EACH PO DAILY, TAB [place]-3/Dha/Epa/Fish Oil (Fish Oil 1,000 mg Softgel) 1 Each Capsule 2 EACH PO HS, CAP Omeprazole (Omeprazole) 20 Mg Tab.rap.dr 20 MG PO HS, EA Oxycodone HCl (Roxicodone) 5 Mg Tablet 5-15 MG PO Q4H PRN for PAIN-SEVERE (8-10), TAB TAKES 1 TO 3 (5MG) TABS Trospium Chloride (Trospium Chloride ER) 60 Mg Cap.er.24h 60 MG PO HS, CAP Vilazodone Hydrochloride (Viibryd) 40 Mg Tablet 40 MG PO HS, TAB Discontinued Medications: Indomethacin (Indomethacin) 50 Mg Capsule 50 MG PO HS, CAP Home Health Need/Face to Face Date of Face to Face: Sep 08, 2021 Clinical Findings: Generalized weakness and fatigue, Muscle weakness, Unsteady gait I have seen Pt [id number]: Yes Discharged To: Home Diagnosis/Conditions: See Above Patient is Homebound due to: Brady fall risk due to instabilty, Muscle weakness Homebound Status Due to the above stated illness, injury or surgical procedure (medical condition or diagnosis) and associated clinical findings, the patient is homebound because of his/her inability to leave home except with aid of a supportive device and/or person AND leaving the home requires a considerable and taxing effort or is medically contraindicated. Pt req the following assistanc: Aid of another person Home Health Nursing Orders Home Health Services Order: Nursing Services, Physical Therapy-Evaluate & Treat, Wound Care-Eval/Treat Resume previous orders Home Health Infusion Therapy Line Start Date: Sep 05, 2021 Certify Stmt I certify that this patient is under my care and that I, a nurse practitioner or a physician; a food and nutrition services assistant working with me, had a face to face encounter that - meets the physician face to face encounter requirements with this patient as dated. Discharge Physical Exam General: Alert, Oriented X3, Cooperative, No Acute Distress Lungs: Clear to Auscultation, Normal Air Movement Heart: Regular Rate, No Murmurs Abdomen: Normal Bowel Sounds, Soft, No Tenderness, No Masses Extremities: No Edema, No Tenderness/Swelling Neuro: Normal Speech, Sensation Intact, Cranial Nerves 3-12 NL SILVER CORTES MD Sep 08, 2021 13:08
[2021-09-08 14:20] VITALS: BP 99/60
== END 2021-09-08 15:15 | disposition home or self-care (01) ==
LOC: EDUNIT# 16:26 → ER 16:29 → 4TH 19:50
PROVIDERS: ADMIT Family Medicine; ATTEND Family Medicine
DX: N39.0 Urinary tract infection, site not specified (principal); B96.20 Unspecified Escherichia coli [E. coli] as the cause of diseases classified elsewhere; N40.1 Benign prostatic hyperplasia with lower urinary tract symptoms; R35.0 Frequency of micturition; R53.81 Other malaise; K52.9 Noninfective gastroenteritis and colitis, unspecified; M54.9 Dorsalgia, unspecified; E11.9 Type 2 diabetes mellitus without complications; M19.90 Unspecified osteoarthritis, unspecified site; A41.9 Sepsis, unspecified organism; G89.29 Other chronic pain; F41.9 Anxiety disorder, unspecified; Z98.890 Other specified postprocedural states; Z79.891 Long term (current) use of opiate analgesic; Z79.899 Other long term (current) drug therapy; Z90.89 Acquired absence of other organs
CPT/HCPCS: 71045; 80048 ×3; 80053; 81000; 83605; 85007; 85025 ×3; 85027; 85610; 85730; 86850; 86900; 86901; 86920; 87040; 87077; 87088; 87186; 99284; G0378; 36415

== ENCOUNTER → 2023-06-04 | Outpatient (CLI) | payer MEDICARE ==
[~2023-06-04] VITALS: Ht 185 cm; Wt 99.0 kg
[~2023-06-04] MED LIST changes: +ACET-2267 PO; -BETH50TA2 PO; +BETH50TA3 PO; +CATHETER FLUSH 10 ML SYR IVP PRN; +CEPH500T PO; +CHOL100048 PO; +CLON2TAB12 PO; +DOCU100C37 PO; +FAMO-356 PO; -FAMO20TA3 PO; +METH-732 PO; +OMEG-160 PO; +OMEP-401 PO; +OXYC-473 PO; +REGADENOSON 0.4 MG/5 ML SYR IV ONE; +TROS60CA PO
[2023-06-04 09:05] VITALS: BP 130/78
--- NOTE | 2023-06-06 20:00 | STRESS TEST ---
DATE OF SERVICE: 06/04/2023 RESTING AND POST REGADENOSON TECHNETIUM-99M TETROFOSMIN SPECT CT IMAGING ORDERING PHYSICIAN: Dr. Granados. PRIMARY PHYSICIAN: Azra Myers APRN. CLINICAL DIAGNOSIS: Chest discomfort. Baseline images were carried out after injection of 10.9 mCi of technetium-99m tetrofosmin. This was followed by 0.4 mg regadenoson and 30.7 mCi technetium-99m tetrofosmin for stress imaging. The electrocardiogram showed sinus rhythm at baseline. There is right bundle branch block. The electrocardiogram did not change significantly with the regadenoson infusion. The patient tolerated the procedure well. Review of images at rest and following stress does not indicate any significant perfusion defects consistent with myocardial ischemia or infarction. Gated images show normal global left ventricular systolic function with normal regional wall motion. Left ventricular ejection fraction is calculated to be 63%. CONCLUSIONS: 1. No evidence of any significant myocardial ischemia or infarction on this study. 2. Normal regional wall motion. 3. Normal global left ventricular systolic function with a calculated ejection fraction of 63%. Job ID: [id number] DocumentID: [id number] Dictated Date: 06/06/2023 18:35:24 Chart Writer Date: 06/06/2023 19:58:00 Dictated By: LEONOR GRANADOS MD; ALVAREZ; FACP; FACC;
== END ==
LOC: CARD 07:26
PROVIDERS: ATTEND Internal Medicine Cardiovascular Disease
DX: R07.89 Other chest pain (principal)
CPT/HCPCS: 78452; 93017; A9502